=== PATIENT | female | born 1940 | race Hispanic/Latino ===

== ENCOUNTER 2018-02-25 14:11 | Emergency (ER) | payer OTHER ==
[2018-02-25] MEDS ORDERED: HYDROCODONE/APAP 5/325 MG TAB ONE (14:51)
--- NOTE | 2018-02-25 15:18 | RAD REPORT ---
EXAM DESCRIPTION: RAD - Shoulder Right 2 View - 02/25/2018 3:10 pm CLINICAL HISTORY: PAIN COMPARISON: Shoulder Right 2 View dated 11/20/2008 FINDINGS: Intramedullary osito is present within the right humeral shaft. Mild subacromial outlet narr owing is present. An acute fracture is not seen.
--- NOTE | 2018-02-25 15:20 | RAD REPORT ---
EXAM DESCRIPTION: RAD - Tib Fib Right - 02/25/2018 3:09 pm CLINICAL HISTORY: PAIN History of fall COMPARISON: Tibia Fibula Right dated 11/20/2008 FINDINGS: Partially visualized distal femoral hardware is noted. An acute fracture or dislocation is not seen.
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
--- NOTE | 2018-02-25 17:00 | RAD REPORT ---
EXAM DESCRIPTION: VAS - Extremity Venous Uni Ltd - 02/25/2018 4:45 pm CLINICAL HISTORY: Leg pain and swelling COMPARISON: None. TECHNIQUE: Real-time sonographic evaluation of the right lower extremity deep venous systems was per formed. FINDINGS: Normal compressibility, flow augmentation, phasic flow and spontaneous flow are identified in the right lower extremity deep venous system. No intraluminal filling defects seen. IMPRESSION: No DVT in the right lower extremity.
== END 2018-02-25 17:09 | disposition home or self-care (01) ==
LOC: ER 14:11
DX: S80.11XA Contusion of right lower leg, initial encounter (principal); M25.511 Pain in right shoulder; W18.00XA Striking against unspecified object with subsequent fall, initial encounter; Y93.9 Activity, unspecified; Y92.9 Unspecified place or not applicable; Y99.9 Unspecified external cause status
CPT/HCPCS: 93971; 99283

== ENCOUNTER 2019-01-20 13:09 | Observation (INO) | payer OTHER ==
[2019-01-20] MEDS ORDERED: ASPIRIN 81 MG CHEWABLE TABLET ONE (14:25)
[2019-01-20] MEDS ORDERED: FAMOTIDINE 20 MG/2 ML VIAL IV ONE (14:25)
[2019-01-20 14:35] LABS: Absolute Lymphocytes (CBC) 2.4 K/uL (0.7-4.9); Absolute Monocytes 0.6 K/uL (0.1-1.3); Absolute Neutrophil 2.4 K/uL (1.8-8.0); Basophils % 0.9 % (0-1.3); Eosinophils % 2.1 % (0-4.4); Hematocrit 40.2 % (36.0-45.0); Lymphocytes % 44.1 % (15.3-44.8); MPV 8.9 fL (7.6-11.3); RBC Red Blood Cell Count 4.63 M/uL (3.86-4.86)
[2019-01-20 14:41] LABS: Protime INR 1.02
[2019-01-20 15:06] LABS: ALT/SGPT 17 U/L (12-78); AST/SGOT 16 U/L (15-37); Albumin 3.9 g/dL (3.4-5.0); Alkaline Phosphatase 51 U/L (45-117); BUN Blood Urea Nitrogen 17 mg/dL (7-18); Bicarbonate 30 mmol/L (21-32); Bilirubin Direct 0.2 mg/dL (0-0.2); Bilirubin Total 0.5 mg/dL (0.2-1.0); Glucose Level 89 mg/dL (74-106); Magnesium 2.2 mg/dL (1.8-2.4); NT PRO-BNP 191 pg/mL (<450); Protein, Total 6.7 g/dL (6.4-8.2); Sodium Level 142 mmol/L (136-145); Troponin (Emerg Dept Use Only) < 0.02 ng/mL (0.0-0.045)
--- NOTE | 2019-01-20 15:12 | RAD REPORT ---
EXAM DESCRIPTION: RAD - Chest Single View - 01/20/2019 2:35 pm CLINICAL HISTORY: CHEST PAIN Chest pain. COMPARISON: CHEST PA AND LAT 2 VIEW dated 12/29/2013; CHEST SINGLE VIEW dated 10/04/2013 FINDINGS: Portable technique limits examination quality. The lungs are emphysematous but clear. The heart is normal in size. No displaced fractures.Prominent distention of the colon in the upper abdomen noted. IMPRESSION: COPD.
--- NOTE | 2019-01-20 15:38 | EKG ---
Test Date: 2019-01-20 Test Time: 13:29:01 Fur Polisher: LUIS MEASUREMENT RESULTS: Intervals: Rate: 68 OK: 162 QRSD: 74 QT: 412 QTc: 438 [place]: P: 46 OK: 162 QRS: -4 T: 17 INTERPRETIVE STATEMENTS: Normal sinus rhythm Minimal voltage criteria for LVH, may be normal variant Borderline ECG Compared to ECG 10/04/2013 21:12:42 Left ventricular hypertrophy now present Electronically Signed On 01-20-19 15:37:38 CDT by Sameer Rosales
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
[2019-01-20 16:31] LABS: Urine Blood TRACE (NEG); Urine Glucose NEGATIVE (NEG); Urine Protein 1+ (NEG); Urine pH 7.5 (5.0-7.0)
--- NOTE | 2019-01-20 21:25 | P.SSS ---
Patient History Date of Service: 01/20/19 Reason for admission: CHEST PAIN, MORE DYSPHAGIA History of Present Illness: PRESTON IS 78 YEARS OLD LADY WITH SEVERE OSTEOPOROSIS, DJD, BACK PAIN, TRIED CBD OIL FOR LAST TWO MONTHS. SHE YESTERDAY HAD PAIN ON SWALLOWING AFTER FOOD AND TODAY ALSO. SHE TOLD THE DAUGHTER AND SHE WAS BROUGHT HERE. Allergies No Known Allergies Allergy (Verified 02/18/16 13:13) Home Medications: Aspirin/Calcium Carbonate/Mag [Aspirin Buffered 325 mg Tab] 325 mg PO DAILY 06/25 Calcium Carbonate/Vitamin D3 [Calcium 600 + Vit D 400 Tablet] 1 each PO DAILY Digoxin [Lanoxin] 0.25 mg PO DAILY 02/18/16 Review of Systems 10-point ROS is otherwise unremarkable Gastrointestinal: As per HPI Physical Examination - Physical Exam General: Alert, Cachectic (NO CHANGES.), Mild distress HEENT: Atraumatic, PERRLA, Mucous membr. moist/pink, EOMI, Sclerae nonicteric Neck: Supple, 2+ carotid pulse no bruit, No LAD, Without JVD or thyroid abnormality Respiratory: Clear to auscultation bilaterally, Normal air movement Cardiovascular: Regular rate/rhythm, Normal S1 S2 Gastrointestinal: Normal bowel sounds, No tenderness Musculoskeletal: No tenderness Integumentary: No rashes Neurological: Normal gait, Normal speech, Normal strength at 5/5 x4 extr, Normal tone, Normal affect Lymphatics: No axilla or inguinal lymphadenopathy - Studies Laboratory Data (last 24 hrs) 01/20/19 14:24: PT 12.0, INR 1.02 01/20/19 14:24: WBC 5.5, Hgb 13.5, Hct 40.2, Plt Count 189 01/20/19 14:24: Sodium 142, Potassium 4.0, BUN 17, Creatinine 0.62, Glucose 89, Magnesium 2.2, Total Bilirubin 0.5, AST 16, ALT 17, Alkaline Phosphatase 51 - Diagnosis (Problem(s)) (1) Atypical chest pain Current Visit: Yes Status: Acute Plan: THIS IS A NON CARDIAC PAIN. IT IS MORE OF DYSPHAGIA. SHE CAN DO EGD OUTPATIENT WILL DC HER IN AM AFTER 3 ENZYMES. - Disposition Disposition: ROUTINE DISCHARGE
[2019-01-20] MEDS ORDERED: SODIUM CHLORIDE 0.9% 10ML INJ IV PRN (21:26)
[2019-01-20 22:44] VITALS: BMI 20.9
[2019-01-21] MEDS: PANTOPRAZOLE 40 MG INJ IVP SCH ×2 (01:40→08:34)
[2019-01-21 04:24] LABS: Absolute Lymphocytes (CBC) 2.8 K/uL (0.7-4.9); Absolute Monocytes 0.5 K/uL (0.1-1.3); Absolute Neutrophil 1.4 K/uL (1.8-8.0); Basophils % 0.8 % (0-1.3); Eosinophils % 3.9 % (0-4.4); Hematocrit 37.4 % (36.0-45.0); Lymphocytes % 56.2 % (15.3-44.8); MPV 9.2 fL (7.6-11.3); Monocytes % 10.8 % (3.3-12.3); RBC Red Blood Cell Count 4.32 M/uL (3.86-4.86)
[2019-01-21 04:33] LABS: BUN Blood Urea Nitrogen 12 mg/dL (7-18); Bicarbonate 27 mmol/L (21-32); Glucose Level 96 mg/dL (74-106); Sodium Level 144 mmol/L (136-145)
[2019-01-21] MEDS ORDERED: ASPIRIN EC 81 MG TAB PO SCH (09:00)
[2019-01-21 09:20] VITALS: BP 134/69; TEMP 97.5
[2019-01-21 10:03] VITALS: O2SAT 94
--- NOTE | 2019-01-21 10:31 | EKG ---
Test Date: 2019-01-21 Test Time: 07:42:56 [employer] Supervisor: GARRY MEASUREMENT RESULTS: Intervals: Rate: 63 CT: 184 QRSD: 84 QT: 432 QTc: 442 [place]: P: 51 CT: 184 QRS: 20 T: 37 INTERPRETIVE STATEMENTS: Sinus bradycardia with premature atrial complexes Septal infarct, age undetermined Abnormal ECG Compared to ECG 01/20/2019 13:29:01 Atrial premature complex(es) now present Myocardial infarct finding now present Sinus rhythm no longer present Left ventricular hypertrophy no longer present Electronically Signed On 01-21-19 10:30:11 CDT by Chavo Deleon
== END 2019-01-21 11:13 | disposition home or self-care (01) ==
LOC: ER 13:09 → ERHOLD 16:14 → 4TH 19:37
PROVIDERS: ADMIT Internal Medicine; ATTEND Internal Medicine
DX: R07.89 Other chest pain (principal); R13.10 Dysphagia, unspecified; I49.1 Atrial premature depolarization; R94.31 Abnormal electrocardiogram [ECG] [EKG]; J44.9 Chronic obstructive pulmonary disease, unspecified; M81.0 Age-related osteoporosis without current pathological fracture; M19.90 Unspecified osteoarthritis, unspecified site; M54.9 Dorsalgia, unspecified; Z79.82 Long term (current) use of aspirin; Z79.899 Other long term (current) drug therapy
CPT/HCPCS: 93005 ×2; 85025 ×2; 80048 ×2; 36415; 83735; 85610; 80076; 81003; 84484 ×3; 83880; 71045; 96374; 99285; C9113 ×2; G0378 ×2

== ENCOUNTER 2019-03-27 09:11 | Day surgery (SDC) | payer OTHER ==
[2019-03-27] MEDS ORDERED: Zoledronic Acid/Mannitol/Water 5 MG/100 ML INFUS.BOT IV ONE (09:30)
[2019-03-27 09:36] VITALS: BP 119/38; TEMP 98.3; O2SAT 99
[2019-03-27 09:39] VITALS: BMI 19.2
== END 2019-03-27 10:12 | disposition home or self-care (01) ==
LOC: DS 09:11
PROVIDERS: ATTEND Internal Medicine
DX: M81.0 Age-related osteoporosis without current pathological fracture (principal); R13.10 Dysphagia, unspecified
CPT/HCPCS: 96365; J3489